=== PATIENT | male | born 1960 | race Caucasian/White ===

== ENCOUNTER 2017-12-11 07:06 | Day surgery (SDC) | payer BC ==
[2017-12-11] MEDS ORDERED: PROPOFOL 500 MG/50 ML EMU IV ONE (07:29)
[2017-12-11 09:45] VITALS: BP 143/88; PULSE 66; RESP 20; TEMP 97.5; O2SAT 97
== END 2017-12-11 10:05 | disposition home or self-care (01) ==
LOC: SURG 07:06
PROVIDERS: ATTEND Surgery
DX: Z12.11 Encounter for screening for malignant neoplasm of colon (principal); K57.30 Diverticulosis of large intestine without perforation or abscess without bleeding
CPT/HCPCS: J2704